=== PATIENT | male | born 1930 | race Caucasian/White ===

== ENCOUNTER 2017-01-13 02:42 | Inpatient (IN) | payer MEDICARE, BC ==
[~2017-01-13] VITALS: Ht 170.2 cm; Wt 80.0 kg
[~2017-01-13 02:42] MED LIST: ALLOPURINOL100 MG PO; AVODART0.5 MG PO; CALCIUM PO; CIPROFLOXACN250 MG PO; DUTASTERIDE0.5 MG PO; FAMOTIDINE20 M1 PO; INDERAL10 MG PO; LOSARTAN POT100 MG PO; PANTOPRAZOLE SO40 MG PO; SPIRONOLACTONE50 MG PO; TAMSULOSIN0.4 MG PO; [UNRECOGNIZED DRUG - OTHER] OR
[2017-01-13] MEDS ORDERED: INDERAL10 M1 PO (02:58)
[2017-01-13 03:31] LABS: HEMATOCRIT 28.1 % (39.0-50.0); HEMOGLOBIN 9.7 g/dl (14.0-18.0); IMMATURE GRANULOCYTES 0.5 % (0.0-1.0); MEAN CELL VOLUME 91.2 fL CALC (80.0-100.0); MEAN CORPUSCULAR HGB 31.5 pG CALC (26.0-32.0); MEAN CORPUSCULAR HGB CONC 34.5 g/L CALC (32.0-36.0); NEUT# 3.42 thou/uL (1.82-7.42); RED BLOOD COUNT 3.08 mill/uL (4.70-6.10); RED CELL DISTRI WIDTH 15.5 % (11.5-15.5)
[2017-01-13 03:34] LABS: INFLUENZA A NONE DETECTED (NONE DETECT); INFLUENZA B NONE DETECTED (NONE DETECT)
[2017-01-13 03:40] LABS: ALBUMIN 3.5 g/dL (3.2-5.0); BILIRUBIN, TOTAL 0.8 mg/dL (0.0-1.4); CALCIUM 9.3 mg/dL (8.4-10.2); CREATININE 2.3 mg/dL (0.7-1.3); POTASSIUM 4.1 mmol/l (3.5-5.1); TOTAL PROTEIN 6.1 g/dL (6.3-8.2)
[2017-01-13 05:00] LABS: URINE BILIRUBIN - DIPSTICK NEGATIVE (NEGATIVE); URINE BLOOD DIPSTICK LARGE (NEGATIVE); URINE CLARITY SLIGHT CLOUDY; URINE COLOR YELLOW; URINE GLUCOSE - DIPSTICK NEGATIVE (NEGATIVE); URINE KETONE NEGATIVE (NEGATIVE); URINE PROTEIN - DIPSTICK NEGATIVE (NEG-TRACE); URINE UROBILINOGEN - DIPSTICK 0.2 E.U./dL (0.2)
[2017-01-13 05:01] LABS: URINE LEUK ESTERASE LARGE (NEGATIVE); URINE NITRITE - DIPSTICK POSITIVE (Negative)
[2017-01-13 05:28] LABS: URINE BACTERIA MANY hpf; URINE WBC 50-100 WBC/hpf (0-5); URINE YEAST FEW hpf
[2017-01-13 07:00] VITALS: BP 102/52
[2017-01-13 15:13] VITALS: BP 110/60
[2017-01-13 19:05] VITALS: BP 93/51
[2017-01-13 23:15] VITALS: BP 103/60
[2017-01-14 04:20] VITALS: BP 109/62
[2017-01-14 06:08] LABS: HEMOGLOBIN 9.4 g/dl (14.0-18.0); IMMATURE GRANULOCYTES 0.4 % (0.0-1.0); MEAN CELL VOLUME 93.3 fL CALC (80.0-100.0); MEAN CORPUSCULAR HGB 31.3 pG CALC (26.0-32.0); MEAN CORPUSCULAR HGB CONC 33.6 g/L CALC (32.0-36.0); NEUT# 2.43 thou/uL (1.82-7.42); RED CELL DISTRI WIDTH 15.8 % (11.5-15.5)
[2017-01-14 06:23] LABS: CALCIUM 8.6 mg/dL (8.4-10.2); CREATININE 2.1 mg/dL (0.7-1.3); POTASSIUM 4.8 mmol/l (3.5-5.1)
[2017-01-14 08:44] VITALS: BP 113/49
[2017-01-14 12:30] VITALS: BP 120/51
[2017-01-14] MEDS ORDERED: FINASTERIDE5 MG PO (13:40)
[2017-01-14] MEDS ORDERED: KEFLEX250 MG PO (13:43)
== END 2017-01-14 16:12 | disposition home health service (06) | DRG 872 ==
LOC: ENPENDDIS → ED 02:42 → ED-I 05:41 → ED 05:50 → MS2 05:51
PROVIDERS: Emergency Medicine; Internal Medicine; ADMIT Internal Medicine; ATTEND Internal Medicine
PROC: 0T9B70Z Drainage of Bladder with Drainage Device, Via Natural or Artificial Opening (ICD-10-PCS; principal; 2017-01-13)
DX: A41.9 Sepsis, unspecified organism (principal); D69.6 Thrombocytopenia, unspecified; N39.0 Urinary tract infection, site not specified; I12.9 Hypertensive chronic kidney disease with stage 1 through stage 4 chronic kidney disease, or unspecified chronic kidney disease; K21.9 Gastro-esophageal reflux disease without esophagitis; D46.9 Myelodysplastic syndrome, unspecified; N18.3 Chronic kidney disease, stage 3 (moderate); R33.9 Retention of urine, unspecified; B96.1 Klebsiella pneumoniae [K. pneumoniae] as the cause of diseases classified elsewhere; Z85.118 Personal history of other malignant neoplasm of bronchus and lung; Z85.038 Personal history of other malignant neoplasm of large intestine; Z92.21 Personal history of antineoplastic chemotherapy

== ENCOUNTER 2018-10-16 18:23 | Inpatient (IN) | payer MEDICARE, BC ==
[~2018-10-16] VITALS: Ht 170.2 cm; Wt 89.8 kg
[~2018-10-16 18:23] MED LIST changes: +FINASTERIDE5 MG PO; +INDERAL10 M1 PO; +KEFLEX250 MG PO
[2018-10-16] MEDS ORDERED: AMOXICILLIN250 M1 PO (18:52)
[2018-10-16] MEDS ORDERED: FUROSEMIDE20 MG PO (18:53)
[2018-10-16] MEDS ORDERED: FINASTERIDE5 MG PO ×2 (18:53→18:57)
[2018-10-16] MEDS ORDERED: PANTOPRAZOLE SO40 MG PO (18:53)
[2018-10-16] MEDS ORDERED: NADOLOL20 MG PO (18:54)
[2018-10-16] MEDS ORDERED: TAMSULOSIN HCL0.4 MG PO (18:54)
[2018-10-16] MEDS ORDERED: VITAMIN B-121000 MC1 SL (18:56)
[2018-10-16 19:27] LABS: HEMATOCRIT 33.4 % (39.0-50.0); HEMOGLOBIN 11.2 g/dl (14.0-18.0); IMMATURE GRANULOCYTES 0.3 % (0.0-5.0); MEAN CELL VOLUME 96.5 fL CALC (80.0-100.0); MEAN CORPUSCULAR HGB 32.4 pG CALC (26.0-32.0); MEAN CORPUSCULAR HGB CONC 33.5 g/L CALC (32.0-36.0); RED BLOOD COUNT 3.46 mill/uL (4.70-6.10); RED CELL DISTRI WIDTH 16.7 % (11.5-15.5)
[2018-10-16 19:43] LABS: ALBUMIN 3.1 g/dL (3.2-5.0); BILIRUBIN, TOTAL 1.8 mg/dL (0.0-1.4); CREATININE 2.5 mg/dL (0.7-1.3); MAGNESIUM 2.1 mg/dL (1.6-2.3); POTASSIUM 4.4 mmol/l (3.5-5.1); TOTAL PROTEIN 5.8 g/dL (6.3-8.2)
[2018-10-16 20:13] LABS: TSH, 3RD GENERATION 2.98 uIU/mL (0.47 - 4.68)
[2018-10-16 21:28] LABS: URINE BILIRUBIN - DIPSTICK NEGATIVE (NEGATIVE); URINE BLOOD DIPSTICK MODERATE (NEGATIVE); URINE COLOR YELLOW; URINE GLUCOSE - DIPSTICK NEGATIVE (NEGATIVE); URINE KETONE NEGATIVE (NEGATIVE); URINE PH 5.5 (4.5-8.0); URINE PROTEIN - DIPSTICK TRACE mg/dL (NEG-TRACE); URINE SPECIFIC GRAVITY 1.015; URINE UROBILINOGEN - DIPSTICK 0.2 E.U./dL (0.2)
[2018-10-16 21:35] LABS: URINE LEUK ESTERASE MODERATE (NEGATIVE); URINE NITRITE - DIPSTICK POSITIVE (Negative)
[2018-10-16 21:37] LABS: URINE BACTERIA MANY hpf; URINE RBC TNTC RBC/hpf (0-5); URINE SQUAMOUS EPITHELIAL CELL FEW EPI/hpf (0-FEW); URINE WBC TNTC WBC/hpf (0-5)
[2018-10-16 22:30] VITALS: BP 121/58
[2018-10-17 04:10] VITALS: BP 101/57
[2018-10-17 12:15] VITALS: BP 135/62; BP 138/73
[2018-10-17 16:03] VITALS: BP 141/60
[2018-10-17 19:00] VITALS: BP 118/54
[2018-10-18 04:10] VITALS: BP 116/52
[2018-10-18 05:14] LABS: HEMATOCRIT 30.4 % (39.0-50.0); HEMOGLOBIN 10.3 g/dl (14.0-18.0); IMMATURE GRANULOCYTES 0.3 % (0.0-5.0); MEAN CELL VOLUME 95.6 fL CALC (80.0-100.0); MEAN CORPUSCULAR HGB 32.4 pG CALC (26.0-32.0); MEAN CORPUSCULAR HGB CONC 33.9 g/L CALC (32.0-36.0); NEUT# 2.07 thou/uL (1.82-7.42); RED BLOOD COUNT 3.18 mill/uL (4.70-6.10); RED CELL DISTRI WIDTH 16.7 % (11.5-15.5)
[2018-10-18 05:30] LABS: ALBUMIN 2.6 g/dL (3.2-5.0); CREATININE 2.4 mg/dL (0.7-1.3); POTASSIUM 3.6 mmol/l (3.5-5.1); TOTAL PROTEIN 5.1 g/dL (6.3-8.2)
[2018-10-18 08:17] VITALS: BP 138/60
[2018-10-18 16:04] VITALS: BP 142/68
[2018-10-18 19:15] VITALS: BP 113/48
[2018-10-19 00:25] VITALS: BP 118/50
[2018-10-19 04:00] VITALS: BP 116/71
[2018-10-19 05:59] LABS: HEMOGLOBIN 10.2 g/dl (14.0-18.0); MEAN CELL VOLUME 95.2 fL CALC (80.0-100.0); MEAN CORPUSCULAR HGB 32.4 pG CALC (26.0-32.0); RED BLOOD COUNT 3.15 mill/uL (4.70-6.10); RED CELL DISTRI WIDTH 16.7 % (11.5-15.5)
[2018-10-19 06:19] LABS: IMMATURE GRANULOCYTES 0.3 % (0.0-5.0); NEUT# 1.8 thou/uL (1.82-7.42)
[2018-10-19 06:21] LABS: ALBUMIN 2.3 g/dL (3.2-5.0); ALKALINE PHOSPHATASE 77 u/l (38-126); AMYLASE < 30 u/l (30-110); ANION GAP 11 (6-22 (CALC)); BUN 44 mg/dL (8-23); BUN/CREATININE RATIO 22 (12-20 (CALC)); CARBON DIOXIDE 21 mmol/l (22-30); CHLORIDE 108 mmol/l (95-108); GFR 32 ML/MIN (>=60 (CALC)); GFR FOR AFR.AMER. 39 ML/MIN (>=60 (CALC)); LIPASE 231 u/l (23-300); POTASSIUM 3.5 mmol/l (3.5-5.1); SGOT/AST 27 u/l (19-48); SODIUM 137 mmol/l (137-146); TOTAL PROTEIN 4.7 g/dL (6.3-8.2)
[2018-10-19 09:08] VITALS: BP 117/55
[2018-10-19 16:00] VITALS: BP 137/59
[2018-10-19 19:05] VITALS: BP 117/54
[2018-10-20 04:20] VITALS: BP 114/63
[2018-10-20 07:59] VITALS: BP 112/50
[2018-10-20] MEDS ORDERED: CIPROFLOXACN500 MG PO (14:37)
[2018-10-20 15:52] VITALS: BP 119/56
[2018-10-20 19:30] VITALS: BP 122/62
[2018-10-21 04:11] VITALS: BP 134/70
[2018-10-21 09:10] VITALS: BP 131/45
== END 2018-10-21 16:10 | DRG 689 ==
LOC: ED 18:23 → ED-I 21:41 → ED 21:51 → MS2 21:52
PROVIDERS: Family Medicine; Internal Medicine Nephrology; Nurse Practitioner Family; ADMIT Internal Medicine; ATTEND Internal Medicine
PROC: 0T9B70Z Drainage of Bladder with Drainage Device, Via Natural or Artificial Opening (ICD-10-PCS; principal; 2018-10-18)
DX: N39.0 Urinary tract infection, site not specified (principal); G93.41 Metabolic encephalopathy; N18.4 Chronic kidney disease, stage 4 (severe); R18.8 Other ascites; D61.818 Other pancytopenia; I12.9 Hypertensive chronic kidney disease with stage 1 through stage 4 chronic kidney disease, or unspecified chronic kidney disease; K75.81 Nonalcoholic steatohepatitis (NASH); K74.69 Other cirrhosis of liver; R33.9 Retention of urine, unspecified; K86.9 Disease of pancreas, unspecified; E86.0 Dehydration; B96.1 Klebsiella pneumoniae [K. pneumoniae] as the cause of diseases classified elsewhere; Z85.038 Personal history of other malignant neoplasm of large intestine; Z85.118 Personal history of other malignant neoplasm of bronchus and lung; Z87.440 Personal history of urinary (tract) infections